=== PATIENT | female | born 1985 | race Caucasian/White ===

== ENCOUNTER 2019-05-03 10:07 | Inpatient (IN) ==
[2019-05-03] MEDS ORDERED: HEPARIN ONE (10:18)
[2019-05-03] MEDS ORDERED: LOPRESSOR 10 MG in NS 50 ML IV ONE (11:00)
[2019-05-03 11:09] LABS: BASO# 0.03 X1000 (0.0-0.2); BASO% 0.3 % (0.0-0.8); EOS# 0.08 X1000 (0.0-0.7); EOS% 0.8 % (0.0-10.0); HEMATOCRIT 36.5 % (37.0-47.0); HEMOGLOBIN 10.7 g/dL (12.0-16.0); IMM GRAN# 0.02 X1000 (0.0-0.04); IMM GRAN% 0.2 % (0.0-0.5); LYMPH# 1.76 X1000 (1.2-3.4); LYMPH% 18.4 % (20.5-51.1); MCH 19.5 PG (27-31); MCHC 29.3 g/dL (33-37); MCV 66.4 FL (81-99); MONO# 0.42 X1000 (0.11-0.59); MONO% 4.4 % (1.7-9.3); MPV 10.1 FL (7.4-10.4); NEUT# 7.23 X1000 (1.4-6.5); NEUT% 75.9 % (42.2-75.2); PLT 370 X1000 (130-400); RDW 18.6 % (11.5-14.5); WBC 9.54 X1000 (4.8-10.8)
[2019-05-03 11:09] LABS: BILIRUBIN URINE NEGATIVE (NEGATIVE); BLOOD URINE NEGATIVE (NEGATIVE); CLARITY SL. CLOUDY (CLEAR); COLOR YELLOW; GLUCOSE URINE NEGATIVE (NEGATIVE); KETONE URINE NEGATIVE (NEGATIVE); LEUKOCYTES URINE NEGATIVE (NEGATIVE); NITRITE URINE NEGATIVE (NEGATIVE); PROTEIN URINE 2+(100 mg/dL) mg/dL (NEGATIVE); URINE BACTERIA 1+ /HFP; URINE CAST NONE SEEN /LPF; URINE CRYSTAL NONE SEEN /HPF; URINE EPITHELIAL CELLS >10 /HPF (<10); URINE RBC <10 /HPF (<10); URINE SOURCE CLEAN CATCH; URINE WBC <10 /HPF (<10); URINE YEAST PRESENT /HPF; UROBILINOGEN URINE NORMAL
[2019-05-03] MEDS ORDERED: LABETALOL IV ONE ×2 (11:09→11:50)
[2019-05-03 11:15] LABS: UR AMPHETAMINES QUAL NONE DETECTED (NONE DETECT); UR BARBITUATES QUAL NONE DETECTED (NONE DETECT); UR BENZODIAZEPIN QUAL NONE DETECTED (NONE DETECT); UR CANNABINOIDS QUAL NONE DETECTED (NONE DETECT); UR COCAINE QUAL NONE DETECTED (NONE DETECT); UR METHADONE QUAL NONE DETECTED (NONE DETECT); UR METHAMPHETAMINE QUAL NONE DETECTED (NONE DETECT); UR OPIATES QUAL NONE DETECTED (NONE DETECT); UR OXYCODONE QUAL NONE DETECTED (NONE DETECT); UR PCP QUAL NONE DETECTED (NONE DETECT); UR PROPOXYPHENE QUAL NONE DETECTED (NONE DETECT); UR TCA QUAL NONE DETECTED (NONE DETECT)
--- NOTE | 2019-05-03 11:20 | PROVIDER DOCUMENTATION ---
HPI-General Adult - General Chief Complaint: B/P Problems Stated Complaint: HIGH BP Time Seen by Provider: 05/03/19 10:25 Source: patient Allergies/Adverse Reactions: Patient Allergies Allergy/AdvReac Type Severity Reaction Status Date / Time cephalexin [From Keflex] AdvReac HIVES Verified 05/03/19 10:19 Home Medications: Home Medication List Medication Instructions Recorded Confirmed Last Taken Type NK [No Home Medications] 05/03/19 05/03/19 Unknown History - History of Present Illness -Gen Adult Nature of Presenting Problems: Patient is a 33yo F who presents for high blood pressure and R ear pain. Reports her R ear has been hurting for 3 days and she went to Urgent Care today for evaluation. States when they took her blood pressure, it was 260/140 and they sent her to the ER for treatment. Patient reports past history of HTN and reports she was prescribed a medication, but she does not remember the name as she has not taken it in over 2 years. Patient denies headache, dizziness, visual changes, diaphoresis, CP, nausea/vomiting, or SOB. Upon examination, patient is in no apparent distress and non-toxic in appearance. Location of Pain/Injury: reports: none Pain Radiation: reports: no radiation Quality of Pain: reports: none Severity: reports: moderate Onset/Duration: reports: just prior to arrival Timing: reports: still present Modifying Factors: improves with: nothing Associated Symptoms: reports: EENT symptoms (R ear). denies: arm pain, chest pain, diaphoresis, dizziness, fever/chills, headaches, sinus congestion/drainage, nausea, shortness of breath, syncope, vomiting, weakness, trouble walking Similar Symptoms Previously?: Yes (hx of HTN) Recently seen or treated by another doctor?: Yes (seen at [facility]) Review of Systems - Adult - REVIEW OF SYSTEMS - ADULT Constitutional: reports: no symptoms reported. denies: chills, fever Eyes: reports: no symptoms reported. denies: decreased vision, blurred vision, double vision Ears, Nose, Mouth & Throat: reports: see HPI, ear pain (R), hearing loss (R). denies: sinus problem, throat pain Cardiovascular: reports: no symptoms reported. denies: chest pain, irregular heart rate, palpitations, syncope Respiratory: reports: no symptoms reported. denies: cough, shortness of breath, wheezing Gastrointestinal: reports: no symptoms reported. denies: abdominal pain, nausea, vomiting Genitourinary: reports: no symptoms reported Musculoskeletal: reports: no symptoms reported Integumentary: reports: no symptoms reported Neurological: reports: no symptoms reported. denies: dizziness/vertigo, headache/migraines, syncope Psychiatric: reports: no symptoms reported Endocrine: reports: no symptoms reported Hematologic/Lymphatic: reports: no symptoms reported Allergic/Immunologic: reports: no symptoms reported All Other Systems: Reviewed and Negative Past History - Adult - PAST MEDICAL HISTORY-ADULT Review of Records: reports: Nursing Assessment Review, Medications Reviewed, Social history reviewed & non-contributory. Cardiovascular: reports: HTN - IMMUNIZATION STATUS Childhood Immunizations: See Nurse Assessment Flu Vaccine: See Nurse Assessment - SOCIAL HISTORY Smoking: non-smoker Physical Exam-General - PHYSICAL EXAM-ADULT Initial Vital Signs Reviewed: Yes - CONSTITUTIONAL General Appearance: appears well, alert, no apparent distress. negative: lethargic, slow to respond, obtunded - EYES Eyes: PERRL/EOMI, pink conjunctivae. negative: EOM palsy, scleral icterus - HEAD, EARS, NOSE, MOUTH & THROAT HENMT: normocephalic/atraumatic, moist mucous membranes, TMs normal (L), pharynx normal, TM abnormal (R TM bulging), other (R preauricular lymphadenopathy; R pinna/tragus tenderness upon palpation and movement). negative: angioedema, pharyngeal erythema - NECK Neck: non-tender, full range of motion, supple, normal inspection. negative: C- spine tenderness, limited range of motion - RESPIRATORY Respiratory: chest non-tender, lungs clear, normal breath sounds, no pleuratic chest pain, no respiratory distress, no accessory muscle use. negative: crackles, rales, rhonchi, stridor, wheezing - CARDIOVASCULAR Cardiovascular: normal peripheral pulses, no gallop, no murmur, tachycardia (114) - LYMPHATIC Lymphatic: other (R preauricular lymphadenopathy) - MUSCULOSKELETAL Back Exam: normal inspection, no CVA tenderness, no vertebral tenderness. negative: decreased range of motion, vertebral tenderness Extremity: normal range of motion, non-tender, normal gait, normal inspection, pelvis stable - SKIN Integumentary: normal color, warm/dry. negative: cyanosis, jaundice, mottled, pallor - NEUROLOGIC Neurologic: grossly normal. negative: abnormal gait, aphasia, facial droop, focal weakness, motor weakness, sensory deficit - PSYCHIATRIC Psych/Mental Status: normal mood/affect, normal thought content, normal thought process, oriented x 3 Progress - PLAN OF CARE/RESULTS Progress/Plan/Lab Results: Vital Signs - 8 hr 05/03/19 10:12 05/03/19 11:05 Temperature 98.1 F Pulse Rate 114 H Respiratory Rate 18 Blood Pressure 214/133 240/148 O2 Sat by Pulse Oximetry 97 Bedside Urine ED: Urine Bedside Start: 05/03/19 10:26 Freq: ORDERED Status: Active Protocol: Activity Type Activity Date Activity User E-Sign Co-Sign Detail Recorded Client Recorded Date Recorded By Document 05/03/19 10:44 [id number] 05/03/19 10:51 [id number] 05/03/19 10:44 Point of Care [Bedside Point of Care] -Lot # [id number] - Results Negative -Control Line Visible? Yes Laboratory Results - last 24 hr 05/03/19 05/03/19 10:53 10:55 WBC 9.54 RBC 5.50 H Hgb 10.7 L Hct 36.5 L MCV 66.4 L MCH 19.5 L MCHC 29.3 L RDW Std Deviation 18.6 H Plt Count 370 MPV 10.1 Immature Gran % (Auto) 0.2 Neut % (Auto) 75.9 H Lymph % (Auto) 18.4 L Gregory % (Auto) 4.4 Eos % (Auto) 0.8 Baso % (Auto) 0.3 Immature Gran # (Auto) 0.02 Neut # (Auto) 7.23 H Lymph # (Auto) 1.76 Gregory # (Auto) 0.42 Eos # (Auto) 0.08 Baso # (Auto) 0.03 Urine Source CLEAN CATCH Urine Color YELLOW Urine Clarity SL. CLOUDY A Urine pH 7.0 Ur Specific [place] 1.010 Urine Protein 2+(100 mg/dL) A Urine Ketones NEGATIVE Urine Blood NEGATIVE Urine Nitrite NEGATIVE Urine Bilirubin NEGATIVE Urine Urobilinogen NORMAL Urine Microscopic RBC <10 Urine WBC NEGATIVE Urine Microscopic WBC <10 Ur Epithelial Cells >10 A Urine Crystals NONE SEEN Urine Bacteria 1+ Urine Casts NONE SEEN Urine Yeast PRESENT Urine Glucose NEGATIVE Orders Category Date Time Status Cardiac Monitoring DIRECTED Care 05/03/19 10:50 Active ED: Urine Bedside ORDERED Care 05/03/19 10:26 Active Nursing- Obtain EKG ONCE Care 05/03/19 10:26 Active CBC WITH ELECTRONIC DIFF [HEME] Stat Lab 05/03/19 10:53 Completed CK PROFILE [SP CHEM] Stat Lab 05/03/19 10:53 Received COMPREHENSIVE METABOLIC PANEL [CHEM] Stat Lab 05/03/19 10:53 Received PRO B-NATRIURETIC PEPTIDE Stat Lab 05/03/19 10:53 Received TROPONIN T Stat Lab 05/03/19 10:[address] W/POSS RFLX CULT [URINALYSIS] Stat Lab 05/03/19 10:55 [address] DRUG SCREEN [address] Stat Lab 05/03/19 10:55 Received Heparin Med 05/03/19 10:18 Discontinued 5,000 unit .ROUTE .STK-MED ONE Labetalol Med 05/03/19 11:09 Discontinued 20 mg IV NOW ONE Metoprolol [Lopressor] 10 mg Med 05/03/19 11:00 Discontinued 0.9% Sodium Chloride Inj [Ns] 50 ml IV NOW EKG [EKG] Stat Ther 05/03/19 10:26 Ordered Lab results, vital signs, and plan of care discussed with Dr. Montano who machelle mmends IV Lasix and PO Clonidine d/t minimal improvement in BP post IV Labetololx2. 1315: Patient's lowest BP 193/148 post IV Labetolol x2, PO Clonidine, and IV Lasix over 3hrs. Patient asymptomatic. Dr. Montano recommends Nitro past, IV hydralazine and admission. Hosp paged. Discussed with patient need for admission for which she accepts. Result Diagrams: 05/03/19 10:53 05/03/19 10:53 - REASSESSMENT Reassessment #1 Time Reassessed: 11:48 Status: unchanged Reassessment Comment: BP 232/130 post 1 dose IV Labetolol; will order another Reassessment #2 Time Reassessed: 12:00 Status: unchanged Reassessment Comment: BP 229/137 post 2 doses of IV Labetolol; IV Lasix and PO Clonidine ordered Reassessment #3 Time Reassessed: 13:00 Status: unchanged Reassessment Comment: BP still elevated; will consult hospitalist for admission per Dusty - EKG 1 Time of EKG reading by physician:: 10:45 EKG Read and Signed by:: Tu Montano EKG Interpretation (*Must complete 3 of following elements*): Normal Rate: 101 Rhythm: ST [place]: normal QRS: normal [place] Interval: normal ST Wave: normal Prior EKG Comparison: no prior EKG - XRAY 1 XRAY: Bilateral XRAY Study: Chest Impression: See EMR Report ([facility] - [address], [address], [place] [address] [facility] - [address] [place] [address] Department of Imaging Patient: ALHAJI JOHNSON Date: 05/03/19#: [id number] : 1985ADM Status: REG ERAcct#: [id number] Age/Sex: 33/FRoom/Bed: Loc: P.ED Ordering Physician: Angelica Garcia Family Physician: None,PCP Reason for Procedure: HTN emergency ___ Signed EXAM: CHEST-1 VIEW HISTORY: HTN emergency TECHNIQUE: Single view. COMPARISON: None. FINDINGS: There is cardiomegaly.. The pulmonary vasculature is not congested. No infiltrate, effusion, or pneumothorax is appreciated. IMPRESSION: No acute cardiopulmonary abnormality is identified. Electronically signed by Qing Mitchell 05/03/2019 12:22 PM 05/03/19 1222 Interpreting Physician: Qing Mitchell MD Dictated Date/Time: 05/03/19 1222 cc: Angelica Chanel; None,PCP) - CONSULTS/PCP/HOSPITALIST Notification #1 *Consult/PCP/Hospitalist*: Rio Cobian Time Discussed: 13:18 Reason/Comments: Hypertensive emergency Consult Disposition: Will see in ED, Admit Departure - Departure Date of Disposition Decision: 05/03/19 Time of Disposition Decision: 13:18 DIAGNOSIS: Hypertensive emergency, Elevated brain natriuretic peptide (BNP) level, Right ear pain Anemia Qualifiers: Anemia type: unspecified type Qualified Code(s): D64.9 - Anemia, unspecified Proteinuria Qualifiers: Proteinuria type: unspecified Qualified Code(s): R80.9 - Proteinuria, unspecified Disposition: ADMITTED INPATIENT 09 Certified Medical Emergency: Emergent Condition: Fair - Critical Care Note This patient required my direct & personal management of CC.: Yes Total Time (mins): 120 Critical Care Statement: This patient required my direct personal management to treat or rule out processes, the absence of which, could potentiallly result in sudden, clinically significant life or limb threatening deterioration. Attestation - Physician/ ALEXYS Attestation Patient care was provided by Advanced Practice Provider:: Yes Advanced Practice Provider:: Angelica Chanel Advanced Practice Provider documentation review:: The Mid-level provider documentation, treatment plan and medical decision making was reviewed by the physician who agrees with all treatment and medical decision making by the P. The physician spent face to face time with patient:: No Advanced Practice Provider documentation review:: Supervising physician onsite and consulted in the evaluation and care of this patient. The physician did not have a face to face encounter with the patient.
[2019-05-03 11:23] LABS: AGAP 13; ALBUMIN 4.4 g/dL (3.5-5.0); ALKALINE PHOSPHATASE 92 U/L (32-104); BUN 9 mg/dL (8-22); CALCIUM 9.9 mg/dL (8.8-10.2); CHLORIDE 99 mmol/L (98-107); CK PROFILE 75 U/L (24-173); COSMO 280; CREATININE 0.6 mg/dL (0.5-0.9); ESTIMATED GFR > 60; GLUCOSE 137 mg/dL (70-104); GOT 26 U/L (10-30); GPT 22 U/L (10-36); SODIUM 140 mmol/L (136-145); TCO2 28 mmol/L (25-35); TOTAL PROTEIN 7.6 g/dL (6.3-8.3)
[2019-05-03] MEDS ORDERED: LASIX IV ONE (12:11)
[2019-05-03] MEDS ORDERED: CATAPRES PO ONE (12:11)
--- NOTE | 2019-05-03 12:24 | Diag Imaging Result Doc PS360 ---
EXAM: CHEST-1 VIEW HISTORY: HTN emergency TECHNIQUE: Single view. COMPARISON: None. FINDINGS: There is cardiomegaly.. The pulmonary vasculature is not congested. No infiltrate, effusion, or pneumothorax is appreciated. IMPRESSION: No acute cardiopulmonary abnormality is identified. Electronically signed by Qing Mitchell 05/03/2019 12:22 PM
[2019-05-03] MEDS ORDERED: APRESOLINE IV ONE (13:15)
[2019-05-03] MEDS ORDERED: NITROGLYCERIN TOP ONE (13:15)
[2019-05-03] MEDS ORDERED: PRINIVIL PO ONE (13:59)
[2019-05-03] MEDS ORDERED: APRESOLINE IV PRN (13:59)
--- NOTE | 2019-05-03 15:17 | HISTORY AND PHYSICAL ---
CHIEF COMPLAINT: High blood pressure. HISTORY OF PRESENT ILLNESS: The patient is a 33-year-old female, who notes that she has been told in the past that she had high blood pressure. In fact, she had been on medications for such, but her lost his job. She has not been on medication in quite some time. She went to a clinic today, stated that she was having right ear pain for the past 3 or 4 days. Urgent Care told that her blood pressure was minimally elevated at 260/140 and she will need to go to the ER. Upon presenting to the ER, blood pressure was indeed 250-270 systolic. She actually denies any headaches, blurry vision, change in vision. Denies chest pain, palpitations. Denies any shortness of breath. ALLERGIES: Keflex causing hives. MEDICATIONS: No current medications. PAST MEDICAL HISTORY: Hypertension. REVIEW OF SYSTEMS: Does have right ear pain with some congestion, coughing. Denies fevers, chills, dysuria, frequency, urgency, hesitancy, polyuria or polydipsia. Denies skin rashes, weight loss or weight gain. Denies chest pain, palpitations. SOCIAL HISTORY: Patient is . She is currently unemployed. Does not smoke, drink or use illicit substances. FAMILY HISTORY: Positive for hypertension. PHYSICAL EXAMINATION: VITAL SIGNS: Afebrile, temperature 98 degrees, pulse 114, respiratory rate 18, oxygen saturation 97 percent on room air, blood pressure 240/148 to 270/150, currently 180 systolic over 111. GENERAL: Patient is awake, alert, currently in no respiratory distress. Very pleasant. HEENT: Normocephalic. NECK: Supple. CARDIOVASCULAR: Regular rate. No murmurs. CHEST: Clear and nonlabored. ABDOMEN: Soft, nondistended. EXTREMITIES: Moves all extremities. NEUROLOGIC: No changes. ASSESSMENT: 1. Relief from hypertension. 2. Right ear pain. 3. Right otitis media. PLAN: We are going to admit patient to the hospital. Certainly need to get her blood pressure better controlled, but do not feel as though it needs to get back to normal immediately as she has most likely been living with her blood pressures in that range for quite some time. She currently has a mild headache after her blood pressures improved. I would expect this is going to worsen if we get her blood pressures controlled too quickly. We are going to admit her to the hospital ICU. We will watch her blood pressures closely. Further orders as needed. cc: Perez Cobian MD
--- NOTE | 2019-05-03 18:24 | EKG Report ---
Test Performed on : 05/03/2019 10:44:15 AM Test Reason : HTN Blood Pressure : / mmHG Vent. Rate : 101 BPM Atrial Rate : 101 BPM P-R Int : 168 ms QRS Dur : 092 ms QT Int : 342 ms P-R-T Axes : 029 029 005 degrees QTc Int : 443 ms Sinus tachycardia. Otherwise normal ECG No previous ECGs available Unconfirmed Result
[2019-05-03] MEDS: NS 1,000 ML IV SCH (18:40)
[2019-05-03] MEDS ORDERED: TYLENOL PO PRN (21:15)
[2019-05-04 05:49] LABS: HEMATOCRIT 30.8 % (37.0-47.0); HEMOGLOBIN 8.9 g/dL (12.0-16.0); MCH 19.3 PG (27-31); MCHC 28.9 g/dL (33-37); MCV 66.8 FL (81-99); MPV 9.6 FL (7.4-10.4); RBC 4.61 XMIL (4.2-5.4); RDW 18.5 % (11.5-14.5); WBC 13.39 X1000 (4.8-10.8)
[2019-05-04 05:53] LABS: AGAP 10; ALBUMIN 3.5 g/dL (3.5-5.0); ALKALINE PHOSPHATASE 73 U/L (32-104); BUN 12 mg/dL (8-22); CALCIUM 9.5 mg/dL (8.8-10.2); CHLORIDE 100 mmol/L (98-107); COSMO 278; CREATININE 0.7 mg/dL (0.5-0.9); ESTIMATED GFR > 60; GLUCOSE 115 mg/dL (70-104); GOT 22 U/L (10-30); GPT 20 U/L (10-36); MAGNESIUM 1.9 mg/dL (1.5-2.7); POTASSIUM 4.1 mmol/L (3.5-5.1); SODIUM 139 mmol/L (136-145); TCO2 28 mmol/L (25-35); TOTAL PROTEIN 6.6 g/dL (6.3-8.3)
[2019-05-04] MEDS: NS 1,000 ML IV SCH (08:15)
[2019-05-04] MEDS ORDERED: PRINIVIL PO SCH (09:00)
[2019-05-04 10:39] VITALS: BP 144/73
--- NOTE | 2019-05-04 14:35 | DISCHARGE SUMMARY ---
ADMISSION DATE: 05/03/2019 DISCHARGE DATE: 05/04/2019 CONSULTATIONS: None. PERTINENT PROCEDURES: 1. Chest x-ray, no acute cardiopulmonary abnormality identified. 2. EKG sinus tachycardia, otherwise normal ECG. DISCHARGE DIAGNOSES: 1. Hypertensive urgency improved overnight with medications and will be discharged home on lisinopril. 2. Otitis media. Will be discharged home on Augmentin. HOSPITAL COURSE: Briefly, Ms. Nicholson is a 33-year-old female whose past medical history is hypertension. She has been on medication for hypertension in the past. Her lost her job and she has not been on her medication for quite some time. She went to a clinic today for right ear pain for the past 3 to 4 days. Urgent Care informed her that her blood pressure was elevated at 260/140 and was referred to the ED, where blood pressures were 250 to 270 systolic. She denies any headaches, blurry vision, or change in vision, chest pain or palpitations or shortness of breath. She was admitted to the ICU and was initially given IV Lopressor, lisinopril, 2 doses of labetalol, and Apresoline along with p.o. Catapres and IV Lasix. We will monitor closely in [facility] ICU and initiated on p.o. lisinopril and given p.r.n. Apresoline. Since receiving treatment in the ED, Ms. Nicholson's pressures have stabilized and she will be discharged back home today with prescription for Prinivil and antibiotics for her otitis media. VITAL SIGNS: At time of discharge, temperature is 97.8 degrees, heart rate 101, respirations 17, blood pressure is 149/72, O2 is 98% on room air. DISCHARGE DIET: Healthy heart. DISCHARGE MEDICATIONS: 1. Augmentin 875/125 one each p.o. b.i.d. for 14 tablets. 2. Prinivil 20 mg p.o. daily with 1 refill. FOLLOW-UP: Ms. Nicholson is being discharged back home with self care. She is to take all medications as prescribed. She has been advised and educated to follow up with the primary care physician and that she needs to watch her blood pressures closely as well as educated on the numerous medical conditions that continuous hypertension can cause such as stroke, kidney disease, and others. She can return to the ED or call 911 for any worsening of symptoms. Dictated by LAZARUS Staton for Perez Cobian MD cc: Perez Cobian MD
== END 2019-05-04 10:50 | disposition home or self-care (01) | DRG 305 ==
LOC: P.ED 10:07 → P.ICU 14:24
PROVIDERS: ATTEND Family Medicine